=== PATIENT | male | born 1995 | race Caucasian/White ===

== ENCOUNTER 2016-08-27 22:20 | Emergency (ER) | payer OTHER ==
[~2016-08-27] VITALS: Ht 177.8 cm; Wt 70.0 kg
[2016-08-27 22:22] VITALS: BP 130/73; PULSE 81; RESP 16; TEMP 98.6; O2SAT 99
--- NOTE | 2016-08-27 23:10 | PD ---
HPI Chief Complaint: Injury Time Seen by Provider: 23:00 Travel History International Travel<30 days: No Contact w/Intl Traveler<30days: No Traveled to known affect area: No History of Present Illness HPI 20-year-old male presents for evaluation of nasal pain. He reports a prior to arrival he was playing basketball and he was elbowed in the nose. He had bleeding from the nostril which is for the most part resolved. He continues to have pain and soft tissue swelling to the bridge of the nose. Pain is mild, aggravated by palpation. Denies any pain to the orbits or the eyes, denies any headache or loss of consciousness. Denies any injury to the teeth. He has no other complaints. [facility] Past Medical History Medical History: Denies Significant Hx Social History Alcohol Use: No Tobacco Use: No Allergies-Medications (Allergen,Severity, Reaction): Coded Allergies: No Known Allergies (Unverified , 08/27/16) Reported Meds & Prescriptions Reported Meds & Active Scripts Active Augmentin (Amoxicillin-Clavulanate) 875-125 mg Tab 875 Mg PO BID not for use in CrCl <30 ml/min. Ibuprofen 800 Mg Tab 800 Mg PO Q6HR PRN Review of Systems Eyes: No: Blurred Vision, Photophobia, Foreign Body Sensation, Pain HENT: Positive: Nosebleed, Other (positive for nasal pain) Neurologic: No: Dizziness, Syncope, Headache Physical Exam Narrative GENERAL: Well-developed well-nourished male in no acute distress SKIN: Warm and dry. HEAD: Atraumatic. Normocephalic. EYES: Pupils equal and round. No scleral icterus. No injection or drainage. Extraocular muscles are intact. No periorbital edema or ecchymosis. ENT: Dried blood noted in both nostrils. No evidence of septal hematoma. Generalized soft tissue swelling to the bridge of the nose. Generalized tenderness to palpation to the bridge of the nose. There is no tenderness to palpation to the maxillary sinuses, zygomatic arches, temporomandibular joints, mandible, forehead. NECK: Trachea midline. No JVD. CARDIOVASCULAR: Regular rate and rhythm. No murmur appreciated. RESPIRATORY: No accessory muscle use. Clear to auscultation. Breath sounds equal bilaterally. MUSCULOSKELETAL: No obvious deformities. NEUROLOGICAL: Awake and alert. No obvious cranial nerve deficits. Motor grossly within normal limits. Normal speech. Data Data Last Documented VS Vital Signs Date Time Temp Pulse Resp B/P Pulse Ox O2 Delivery O2 Flow Rate FiO2 08/27/16 23:45 Room Air 08/27/16 22:22 98.6 81 16 130/73 99 Orders Nasal Bones (Min 3 Vws) (08/27/16 ) Ice/Cold Pack (08/27/16 23:07) Acetamin-Codeine 300-30 Mg (Tylenol-Code (08/27/16 23:15) Ondansetron Odt (Zofran Odt) (08/27/16 23:45) Sodium Chlor 0.9% 1000 Ml Inj (Ns 1000 M (08/27/16 23:54) Cbc No Diff, Includes Plts (08/27/16 23:54) Labs Laboratory Tests Test 08/28/16 00:05 White Blood Count 17.4 TH/MM3 Red Blood Count 5.16 MIL/MM3 Hemoglobin 15.6 GM/DL Hematocrit 46.5 % Mean Corpuscular Volume 90.2 FL Mean Corpuscular Hemoglobin 30.3 PG Mean Corpuscular Hemoglobin 33.6 % Concent Red Cell Distribution Width 13.4 % Platelet Count 279 TH/MM3 Mean Platelet Volume 8.0 FL MDM Medical Decision Making Medical Screen Exam Complete: Yes Emergency Medical Condition: Yes Medical Record Reviewed: Yes Differential Diagnosis Nasal fracture, contusion, septal hematoma Narrative Course X-ray imaging confirms a displaced nasal fracture. He was given a copy of his x -ray report. He is being discharged, advised follow-up with a craniofacial surgeon sometime in the next 5 days. He is being discharged with ibuprofen and Augmentin prescriptions. Just prior to discharge the patient began complaining of some lightheadedness and he was given some oral fluids and continue to feel lightheaded. Therefore he'll be given 1 L of IV fluids, CBC has been ordered and his hemoglobin is within normal limits. Leukocytosis likely secondary to stress reaction. He feels improved after the administration of IV fluids. He is stable for discharge. Diagnosis Primary Impression: Nasal fracture Qualified Code: S02.2XXA - Closed fracture of nasal bone, initial encounter Referrals: Teodoro Galan DMD Additional Instructions: Follow-up with a craniofacial specialist such as Dr. Galan in the next 5 days. As discussed, avoid drinking through a straw, blowing the nose, close mouth sneezing and additional facial trauma. Antibiotics as prescribed. Ibuprofen for pain. Ice pack several times a day 20 minutes at a time to the affected area to reduce swelling. Return for any emergent medical conditions. Med/Other Pt SpecificInfo: Prescription(s) given Scripts Amoxicillin-Clavulanate (Augmentin)875-125 mg [id number] Mg PO BID #10 TAB Ref 0 not for use in CrCl <30 ml/min. Prov:Moo Anaya MD 08/27/16 Ibuprofen 800 Mg [id number] Mg PO Q6HR PRN (PAIN) #40 TAB Ref 0 Prov:Moo Anaya MD 08/27/16 Disposition: 01 DISCHARGE HOME Condition: Stable Alfredo Bland Aug 27, 2016 23:10
[2016-08-27] MEDS ORDERED: ACETAMINOPHEN/CODEINE 300 MG/30 MG TAB PO ONE (23:15)
[2016-08-27] MEDS ORDERED: IBUP800T23 PO (23:28)
--- NOTE | 2016-08-27 23:36 | RADRPT ---
EXAM DATE/TIME: 08/27/2016 23:24 [place] COMPARISON: No previous studies available for comparison. INDICATIONS : Nasal pain; hit in nose with elbow during basketball. MEDICAL HISTORY : None. SURGICAL HISTORY : None. ENCOUNTER: Initial ACUITY: 1 day PAIN SCORE: 2/10 LOCATION: Bilateral nasal. FINDINGS: There is a displaced fracture of nasal bones on the right side.. The anterior nasal spine is intact. CONCLUSION: 1. Nasal bone fracture Sami Pope MD on August 27, 2016 at 23:33 Board Certified Radiologist. This report was verified electronically.
[2016-08-27] MEDS: ONDANSETRON ODT 4 MG TAB PO ONE (23:45)
[2016-08-27] MEDS ORDERED: AUGM875T PO (23:46)
[2016-08-27] MEDS ORDERED: SODIUM CHLOR 0.9% 1000 ML INJ 1,000 ML IV SCH (23:54)
[2016-08-28] MEDS: ONDANSETRON ODT 4 MG TAB PO ONE (00:03)
[2016-08-28 00:51] LABS: HEMATOCRIT 46.5 % (39.0-51.0); MEAN CELL VOLUME 90.2 FL (80.0-100.0); MEAN CORPUSCULAR HEMOGLOBIN 30.3 PG (27.0-34.0); MEAN CORPUSCULAR HGB CONC 33.6 % (32.0-36.0); PLATELET COUNT 279 TH/MM3 (150-450); RED BLOOD COUNT 5.16 MIL/MM3 (4.50-5.90); RED CELL DISTRIBUTION WIDTH 13.4 % (11.6-17.2); REVIEW FLAG FINAL; WHITE BLOOD COUNT 17.4 TH/MM3 (4.0-11.0)
== END 2016-08-28 01:26 | disposition home or self-care (01) ==
LOC: NEPD 22:20
DX: S02.2XXA Fracture of nasal bones, initial encounter for closed fracture (principal); W50.0XXA Accidental hit or strike by another person, initial encounter; Y93.67 Activity, basketball; Y92.9 Unspecified place or not applicable; Y99.8 Other external cause status
CPT/HCPCS: 70160; 85027; 99283; J7030